=== PATIENT | male | born 1945 | race Caucasian/White ===

== ENCOUNTER → 2018-12-23 | Outpatient (CLI) | payer OTHER ==
[~2018-12-23] MED LIST: ASPIR 8181 MG PO; AUGMENTIN 875875 MG PO; B12INJ IM; CALCIUM PO; FLAGYL500 MG PO; LISINOPRIL20 MG PO; MAGNESIUM CITR100 MG PO; MIRALAX17 GM PO; NORVASC5 MG PO; OMEPRAZOLE20 M2 PO; RED YEAST RICE600 MG PO; ROPINIROLE HCL2 MG PO; VITAMIN D-32000 UNIT PO
--- NOTE | 2018-12-23 16:03 | 2DMMODE ---
[place] [address] 2 D/M-MODE ECHOCARDIOGRAM Name: ROSIOBRENDA TRACE Room: [facility]#: [id number] Admission: 12/23/18 Attend Phys: Joey John MD Discharge: Date of : 41 Date of Service: 12/23/18 1603 Report #: [id number] THIS REPORT FOR: //name// APPROVED REPORT Study performed: 12/23/2018 15:14:04 EXAM: Comprehensive 2D, Doppler, and color-flow Echocardiogram Patient Location: Out-Patient BSA: 2.02 HR: 75 bpm BP: 120/70 mmHg Other Information Study Quality: Good Indications CAD 2D Dimensions IVSd: 11.13 (7-11mm) LVOT Diam: 20.86 (18-24mm) LVDd: 47.36 mm PWd: 9.97 (7-11mm) Ascending Ao: 33.77 (22-36mm) LVDs: 27.90 (25-40mm) Aortic Root: 30.29 mm Volumes Left Atrial Volume (Systole) LA ESV Index: 22.30 mL/m2 Aortic Valve AoV Peak Scott.: 2.16 m/s AO Peak Gr.: 18.67 mmHg LVOT Max P.84 mmHg AO Mean Gr.: 10.26 mmHg LVOT Mean P.70 mmHg LVOT Max V: 0.98 m/s AO V2 VTI: 44.90 cm LVOT Mean V: 0.59 m/s MOHAN (VTI): 1.65 cm2 LVOT V1 VTI: 21.63 cm Mitral Valve E/A Ratio: 0.94 MV Decel. Time: 192.69 ms MV E Max Scott.: 0.83 m/s MV PHT: 55.88 ms MVA (PHT): 3.94 [place] [address] 2 D/M-MODE ECHOCARDIOGRAM Name: ROSIOBRENDA OBRIENCIARAN Room: [facility]#: [id number] Admission: 12/23/18 Attend Phys: Joey John MD Discharge: Date of : 41 Date of Service: 12/23/18 1603 Report #: [id number] TDI E/Lateral E': 9.22 E/Medial E': 11.86 Medial E' Scott.: 0.07 m/s Lateral E' Scott.: 0.09 m/s Pulmonary Valve PV Peak Scott.: 1.48 m/s PV Peak Gr.: 8.80 mmHg Tricuspid Valve RAP Estimate: 5.00 mmHg TR Peak Gr.: 21.19 mmHg RVSP: 26.19 mmHg PA Pressure: 26.19 mmHg Left Ventricle The left ventricle is normal size. There is normal LV segmental wall motion. There is normal left ventricular wall thickness. Left ventricular systolic function is normal. LVEF is 55-60%. Grade I - abnormal relaxation pattern. Right Ventricle The right ventricle is normal size. The right ventricular systolic function is normal. Atria The left atrium size is normal. The right atrium size is normal. Aortic Valve Aortic valve is mildly calcified. No aortic regurgitation is present. Mild aortic stenosis. Mitral Valve Mild mitral annular calcification. There is no mitral valve regurgitation noted. No evidence of mitral valve stenosis. Tricuspid Valve The tricuspid valve is normal in structure. Mild tricuspid regurgitation. The RVSP is 30-35 mmHg. Pulmonic Valve The pulmonary valve is normal in structure. Mild pulmonic regurgitation. Great Vessels The aortic root is normal in size. IVC [place] [address] 2 D/M-MODE ECHOCARDIOGRAM Name: BRENDA AVELARCIARAN Room: [facility]#: [id number] Admission: 12/23/18 Attend Phys: Joey John MD Discharge: Date of : 41 Date of Service: 12/23/18 1603 Report #: [id number] collapses >50% with inspiration. Pericardium There is no pericardial effusion. <Conclusion> The left ventricle is normal size. There is normal left ventricular wall thickness. Left ventricular systolic function is normal. LVEF is 55-60%. Grade I - abnormal relaxation pattern. There is normal LV segmental wall motion. Mild aortic stenosis. Mild mitral annular calcification. Mild tricuspid regurgitation. The RVSP is 30-35 mmHg. IVC is normal in size and collapses >50% with inspiration. <ELECTRONICALLY SIGNED> By: Augusto Dudley MD, FACC 12/23/18 1603 1603 1603 Augusto Dudley MD, FACC /INF
== END ==
LOC: M.CRD 14:00
DX: I08.8 Other rheumatic multiple valve diseases (principal); I25.10 Atherosclerotic heart disease of native coronary artery without angina pectoris